=== PATIENT | female | born 1995 | race Caucasian/White ===

== ENCOUNTER → 2017-05-08 | Outpatient (CLI) | payer OTHER ==
[2017-05-08 14:21] LABS: HCT 36.9 % (34.0-46.0); HGB 12.2 gm/dL (11.4-16.0); MCH 28.4 pg (25.0-35.0); MCHC 33.1 g/dL (31.0-37.0); MCV 85.7 fL (80.0-100.0); Mean Platelet Volume 7.1; Platelet Count 220 k/uL (150-450); RDW 14.5 % (11.5-15.5); WBC 6.6 k/uL (3.8-10.6)
--- NOTE | 2017-05-08 14:31 | US ---
EXAMINATION TYPE: US OB <= 14 wk fetus DATE OF EXAM: 05/08/2017 COMPARISON: NONE CLINICAL HISTORY: Z36 Confirm dates. EXAM PERFORMED: Transabdominal (TA) EXAM MEASUREMENTS: GESTATIONAL AGE / DATING Physician Established: not established Dates by LMP: (11 weeks/2 days) EDC: 11/25/2017 Dates by First Scan: this is first scan Dates by Current Scan for: (11 weeks/6 days) EDC: 11/21/2017 MATERNAL ANATOMY Uterus: 13.6 x 9.1 x 8.8 cm Right Ovary: 2.7 x 3.7 x 2.1 cm Left Ovary: 3.3 x 2.3 x 2.0 cm Post CDS / Adnexa: wnl Presence of free fluid: none GESTATION / SURVEY CRL: 5.0 cm (11 weeks/6 days) Yolk Sac (normal less than 6mm): 0.5 cm Heart Rate: 156 bpm Rhythm: Normal IUP: Viable IUP Date of LMP: 02/18/2017 viable IUP that correlates with LMP. IMPRESSION: Single viable intrauterine corresponding to ultrasound age 11 weeks 6 days with estimated d ate of delivery 11/21/2017 by today's exam.
[2017-05-08 14:47] LABS: Glucose 74 mg/dL (74-99)
== END | disposition home or self-care (01) ==
LOC: RADUSWWP 13:34
PROVIDERS: ATTEND Obstetrics & Gynecology
DX: Z36.9 Encounter for antenatal screening, unspecified (principal); Z34.81 Encounter for supervision of other normal pregnancy, first trimester; Z3A.11 11 weeks gestation of pregnancy
CPT/HCPCS: 36415; 76801; 82565; 82947; 85027; 86592; 86762; 86850; 86900; 86901; 87340

== ENCOUNTER → 2017-08-28 | Outpatient (CLI) | payer OTHER ==
[2017-08-28 12:50] LABS: HCT 34.2 % (34.0-46.0); HGB 11.6 gm/dL (11.4-16.0); MCH 28.6 pg (25.0-35.0); MCHC 33.9 g/dL (31.0-37.0); MCV 84.2 fL (80.0-100.0); Mean Platelet Volume 7.3; Platelet Count 209 k/uL (150-450); RBC 4.06 m/uL (3.80-5.40); RDW 12.4 % (11.5-15.5); WBC 6.3 k/uL (3.8-10.6)
== END | disposition home or self-care (01) ==
LOC: LABWHC1 11:36
PROVIDERS: ATTEND Obstetrics & Gynecology
DX: Z34.82 Encounter for supervision of other normal pregnancy, second trimester (principal); Z3A.00 Weeks of gestation of pregnancy not specified
CPT/HCPCS: 36415; 82950; 85027; 86850

== ENCOUNTER 2019-10-21 17:47 | Observation (INO) | payer OTHER ==
[2019-10-21 19:16] VITALS: RESP 16
[2019-10-21] MEDS: LACTATED RINGERS 1,000 ML IV SCH ×3 (20:27→22:19)
[2019-10-21 22:06] VITALS: BP 112/66; PULSE 65; TEMP 97.5
[2019-10-22] MEDS: LACTATED RINGERS 1,000 ML IV SCH (04:20)
--- NOTE | 2019-10-22 08:17 | P.HPOB ---
History of Present Illness H&P Date: 10/22/19 Chief Complaint: contractions 24-year-old presents at 37 weeks and 3 days complaining of contractions. Her contractions were every 2-5 minutes. heart tones 135 with moderate variability and reactive. Her cervix did change in triage from 1-1/2 cm dilated to 3 cm dilated but still 50% effaced and -3 station. Started IV fluids and admitted for observation. If The patient goes into active labor, then I will do a repeat section. Review of Systems All systems: negative Constitutional: Denies chills, Denies fever Eyes: denies blurred vision, denies pain Ears, nose, mouth and throat: Denies headache, Denies sore throat Cardiovascular: Denies chest pain, Denies shortness of breath Respiratory: Denies cough Gastrointestinal: Denies abdominal pain, Denies diarrhea, Denies nausea, Denies vomiting Genitourinary: Denies dysuria, Denies hematuria Musculoskeletal: Denies myalgias Integumentary: Denies pruritus, Denies rash Neurological: Denies numbness, Denies weakness Psychiatric: Denies anxiety, Denies depression Endocrine: Denies fatigue, Denies weight change Past Medical History Past Medical History: No Reported History History of Any Multi-Drug Resistant Organisms: None Reported Past Surgical History: Appendectomy, Section Past Anesthesia/Blood Transfusion Reactions: No Reported Reaction Past Psychological History: No Psychological Hx Reported Smoking Status: Never smoker Past Drug Use History: Marijuana Additional Drug Use History / Comment(s): states smoked 1 month ago - Past Family History Father Family Medical History: No Reported History Medications and Allergies Home Medications Medication Instructions Recorded Confirmed Type Jdq-Yimc-Cyiyx Acid 1 tab PO DAILY 10/30/13 10/21/19 History [-U Capsule (formulary)] Allergies Allergy/AdvReac Type Severity Reaction Status Date / Time latex AdvReac Rash/Hives Verified 10/21/19 18:02 Exam Osteopathic Statement: *. No significant issues noted on an osteopathic structural exam other than those noted in the History and Physical/Consult. Vital Signs Temp Pulse Resp BP Pulse Ox 10/21/19 21:55 97.5 F L 65 16 112/66 10/21/19 19:08 97.4 F L 90 16 126/73 99 10/21/19 19:03 97.5 F L 65 16 112/66 Intake and Output 10/21/19 10/22/19 10/22/19 22:59 06:59 14:59 Intake Total 1000 Balance 1000 Intake: IV 1000 Other: Weight 72.575 kg Heart: Regular rate and rhythm Lungs: Clear to auscultation bilaterally Abdomen: Soft, nontender Extremities: Negative Homans sign Assessment and Plan (1) Primary inadequate contractions Current Visit: Yes Status: Acute Code(s): O62.0 - PRIMARY INADEQUATE CONTRACTIONS SNOMED Code(s): 670343910 (2) Previous section Current Visit: Yes Status: Acute Code(s): Z98.891 - HISTORY OF UTERINE SCAR FROM PREVIOUS SURGERY SNOMED Code(s): 925405285 Plan: 1. The patient was kept overnight for observation due to the fact that she is choco and has had a previous section. 2. If patient went into labor I would do a section.
--- NOTE | 2019-10-22 08:19 | P.DS ---
Providers Date of admission: 10/21/19 21:49 Expected date of discharge: 10/22/19 Attending physician: Madonna Garcia Primary care physician: Stated None - Discharge Diagnosis(es) (1) Primary inadequate contractions Current Visit: Yes Status: Acute (2) Previous section Current Visit: Yes Status: Acute Hospital Course: Patient presented complaining of contractions. Her cervix did change from 1.5 cm to 3 cm with 70% effaced and -3 station. Her contractions resolved after IV fluids and rest. heart tones were category 1 all night. She'll be discharged home to follow-up with Dr. Tarango next week. Plan - Discharge Summary New Discharge Prescriptions: No Action Yfu-Vyea-Tncsx Acid [-U Capsule (formulary)] 1 tab PO DAILY Discharge Medication List Znl-Mifb-Vusat Acid [-U Capsule (formulary)] 1 tab PO DAILY 10/30/13 [History]
== END 2019-10-22 11:25 | disposition home or self-care (01) ==
LOC: FBPOP 17:47 → 4FBP 21:49
PROVIDERS: ADMIT Obstetrics & Gynecology; ATTEND Obstetrics & Gynecology
DX: O62.0 Primary inadequate contractions (principal); Z98.891 History of uterine scar from previous surgery; Z3A.37 37 weeks gestation of pregnancy; Z90.49 Acquired absence of other specified parts of digestive tract; Z91.040 Latex allergy status
CPT/HCPCS: 59025; 96360; 96361 ×2; G0463; G0378; 99214

== ENCOUNTER 2019-10-23 05:35 | Inpatient (IN) | payer OTHER ==
[2019-10-23] MEDS ORDERED: METHYLERGONOVINE 0.2 MG/ML 1 ML AMP IM PRN (05:45)
[2019-10-23] MEDS ORDERED: OXYTOCIN 10 UNIT/ML 1 ML VIAL IM PRN (05:45)
[2019-10-23] MEDS ORDERED: CARBOPROST TROMETHAMINE 250 MCG/ML 1 ML AMP IM PRN (05:45)
[2019-10-23] MEDS ORDERED: TERBUTALINE 1 MG/ML VIAL SQ PRN (05:45)
[2019-10-23] MEDS ORDERED: LIDOCAINE 0.5% (PF) 5 MG/ML (50 ML SDV) SQ PRN (05:45)
[2019-10-23] MEDS: LACTATED RINGERS 1,000 ML IV SCH ×3 (06:25→20:02)
[2019-10-23 06:26] LABS: Basophils % (A) 0 %; Eosinophils # (A) 0.2 k/uL (0-0.7); Eosinophils % (A) 4 %; HCT 35.7 % (34.0-46.0); HGB 12.2 gm/dL (11.4-16.0); Lymphocytes # (A) 1.8 k/uL (1.0-4.8); Lymphocytes % (A) 31 %; MCH 29.1 pg (25.0-35.0); MCHC 34.1 g/dL (31.0-37.0); MCV 85.2 fL (80.0-100.0); Mean Platelet Volume 7.6; Monocytes # (A) 0.3 k/uL (0-1.0); Monocytes % (A) 6 %; Neutrophils # (A) 3.4 k/uL (1.3-7.7); Neutrophils % (A) 58 %; Platelet Count 239 k/uL (150-450); RBC 4.19 m/uL (3.80-5.40); RDW 13.1 % (11.5-15.5); WBC 5.8 k/uL (3.8-10.6)
[2019-10-23] MEDS ORDERED: CITRIC ACID-SODIUM CITRATE 15 ML CUP PO ONE (06:26)
[2019-10-23] MEDS ORDERED: OXYTOCIN 10 UNIT/ML 1 ML VIAL ONE (06:46)
[2019-10-23] MEDS ORDERED: ONDANSETRON 4 MG/2 ML VIAL ONE (06:46)
[2019-10-23] MEDS ORDERED: fentaNYL (PF) 50 MCG/ML 2 ML AMP ONE (06:46)
[2019-10-23] MEDS ORDERED: MORPHINE SULFATE (PF) 0.3 MG/0.3 ML SYR ONE (06:46)
[2019-10-23] MEDS ORDERED: KETOROLAC 30 MG/ML 1 ML VIAL ONE (06:46)
[2019-10-23] MEDS ORDERED: ONDANSETRON 4 MG/2 ML VIAL IVP PRN (07:19)
[2019-10-23] MEDS ORDERED: NALOXONE 0.4 MG/ML 1 ML VIAL IV PRN ×2 (07:19→08:16)
[2019-10-23] MEDS ORDERED: MORPHINE SULFATE 2 MG/ML SYRINGE IVP PRN (07:19)
[2019-10-23] MEDS ORDERED: diphenhydrAMINE 50 MG/ML 1 ML VIAL IVP PRN ×3 (07:19→08:16)
--- NOTE | 2019-10-23 08:01 | P.HPOB ---
History of Present Illness H&P Date: 10/23/19 Chief Complaint: Labor, SROM, previous 24-year-old presents at 37 weeks and 5 days complaining of spotting is rupture membranes at 4 AM and contractions. Her cervix is 5-6 cm dilated, 80% effaced, and -2 station. She is choco every 3-5 minutes. heart tones 135 with moderate variability and reactive. Review of Systems All systems: negative Constitutional: Denies chills, Denies fever Eyes: denies blurred vision, denies pain Ears, nose, mouth and throat: Denies headache, Denies sore throat Cardiovascular: Denies chest pain, Denies shortness of breath Respiratory: Denies cough Gastrointestinal: Denies abdominal pain, Denies diarrhea, Denies nausea, Denies vomiting Genitourinary: Denies dysuria, Denies hematuria Musculoskeletal: Denies myalgias Integumentary: Denies pruritus, Denies rash Neurological: Denies numbness, Denies weakness Psychiatric: Denies anxiety, Denies depression Endocrine: Denies fatigue, Denies weight change Past Medical History Past Medical History: No Reported History Additional Past Medical History / Comment(s): Obstetric history: She's had 3 previous deliveries. This is her fourth and she's had care with Dr. Dowling. Blood type is A-, amylase negative, rubella immune, hepatitis B negative, GBS negative, HIV negative, RPR nonreactive. History of Any Multi-Drug Resistant Organisms: None Reported Past Surgical History: Appendectomy, Section Past Anesthesia/Blood Transfusion Reactions: No Reported Reaction Past Psychological History: No Psychological Hx Reported Smoking Status: Never smoker Past Drug Use History: Marijuana Additional Drug Use History / Comment(s): about once a week - Past Family History Father Family Medical History: No Reported History Mother Family Medical History: No Reported History Medications and Allergies Home Medications Medication Instructions Recorded Confirmed Type RX: Ezx-Pqzl-Cvsse Acid 1 tab PO DAILY 10/30/13 10/23/19 History [-U Capsule (formulary)] Allergies Allergy/AdvReac Type Severity Reaction Status Date / Time latex AdvReac Rash/Hives Verified 10/23/19 05:36 Exam Osteopathic Statement: *. No significant issues noted on an osteopathic structural exam other than those noted in the History and Physical/Consult. Vital Signs Temp Pulse Resp BP Pulse Ox 10/23/19 06:33 97.0 F L 62 16 120/74 100 10/23/19 06:18 97.0 F L 62 16 120/74 100 Intake and Output 10/22/19 10/23/19 10/23/19 22:59 06:59 14:59 Other: Voiding Method Indwelling Catheter # Voids 1 Weight 70.76 kg Heart: Regular rate and rhythm Lungs: Clear to auscultation bilaterally Abdomen: Soft, nontender Extremities: Negative Homans sign Results Result Diagrams: 10/23/19 06:18 Assessment and Plan (1) Normal labor Current Visit: Yes Status: Acute Code(s): O80 - ENCOUNTER FOR FULL-TERM UNCOMPLICATED DELIVERY; Z37.9 - OUTCOME OF DELIVERY, UNSPECIFIED SNOMED Code(s): 45856124 (2) Previous section Current Visit: No Status: Acute Code(s): Z98.891 - HISTORY OF UTERINE SCAR FROM PREVIOUS SURGERY SNOMED Code(s): 144145713 (3) Family planning Current Visit: Yes Status: Acute Code(s): Z30.09 - ENCOUNTER FOR OTH GENERAL CNSL AND ADVICE ON CONTRACEPTION SNOMED Code(s): 265784635 Plan: 1. Repeat low transverse with tubal ligation
--- NOTE | 2019-10-23 08:04 | P.OP ---
Date of Procedure: 10/23/19 Preoperative Diagnosis: 1. at 37 weeks and 5 days 2. Previous section 3. Spontaneous rupture membranes 4. Labor 5. Family planning Postoperative Diagnosis: 1. at 37 weeks and 5 days 2. Previous section 3. Spontaneous rupture membranes 4. Labor 5. Family planning Procedure(s) Performed: Repeat low transverse with tubal ligation Anesthesia: MARLEE Surgeon: Madonna Garcia Maintenance Supervisor Electrical #1: Katt Francois Estimated Blood Loss (ml): 500 IV fluids (ml): 1,200 Urine output (ml): 100 Pathology: other (Segments of bilateral fallopian tubes) Condition: stable Disposition: floor Operative Findings: Normal uterus, tubes, ovaries. Viable male, Apgars 9, 9, weight 6 lbs. 9 oz. Description of Procedure: Patient was taken to the operating room where spinal anesthesia was found be adequate. She was prepped and draped in normal sterile fashion in dorsal supine position with a leftward tilt. Pfannenstiel skin incision was made the scalpel and carried through to the underlying layer of fascia with the scalpel. Fascia was incised in midline and carried bilaterally with the De La Rosa scissors. The superior aspect of the fascial incision was grasped with Tatum clamps elevated and the underlying rectus muscles dissected off with the De La Rosa's. Attention was then turned to inferior aspect of same incision which in a similar fashion was grasped tented up and the underlying rectus muscles dissected off with the De La Rosa's. The rectus muscles were the midline and the peritoneum was identified tented up and entered sharply with the scalpel. The incision was extended superiorly and inferiorly with good visualization of the bladder. The bladder blade was inserted and the vesicouterine peritoneum was incised the Metzenbaums then carried bilaterally and bladder flap created digitally. A low transverse incision was then made on the uterus with the scalpel. This was carried bilaterally and digital manner. Infant's head delivered atraumatically, nose and mouth bulb suctioned, cord clamped and cut, handed off to waiting nurses. Apgars 9,9, weight 6 lbs. 9 oz. Placenta delivered manually, intact with three-vessel cord. The uterus is exteriorized and cleared of all clots and debris. The uterine incision was closed with 0 Vicryl in a running locked fashion. Second layer of the same sutures used in imbricating fashion to obtain excellent hemostasis. Bladder flap was then reapproximated using 2-0 Vicryl in a running fashion. There was still a little oozing from the right corner of the incision on the uterus. I used FloSeal to obtain excellent hemostasis. Both ovaries and tubes appeared normal. The right fallopian tube was grasped with hemostat and a window was made in the mesosalpinx with the Bovie. This fallopian tube was doubly ligated and a segment was removed, pedicles cauterized with the Bovie. The left fallopian tube was then grasped with hemostat and a window was made in the mesosalpinx with the Bovie. The left fallopian tube was doubly ligated and a segment was removed, pedicles cauterized with the Bovie. The uterus was placed back into the abdomen. The peritoneum was reapproximated using 2-0 Vicryl in a running fashion. The muscles were reapproximated using 2-0 Vicryl in interrupted fashion. The fascia was reapproximated using 0 Vicryl in a running fashion. The subcutaneous tissues closed with 3-0 Vicryl running fashion. The skin was closed augusta. Patient tolerated the procedure well, sponge and instrument counts were correct times 2 and she was taken to the recovery room in stable condition.
[2019-10-23] MEDS ORDERED: ZOLPIDEM 5 MG TAB PO PRN (08:16)
[2019-10-23] MEDS ORDERED: diphenhydrAMINE 25 MG CAP PO PRN (08:16)
[2019-10-23] MEDS ORDERED: LANOLIN CREAM 5 GM TUBE TOPICAL PRN (08:16)
[2019-10-23] MEDS ORDERED: SIMETHICONE 80 MG CHEWABLE PO PRN (08:16)
[2019-10-23] MEDS ORDERED: ACETAMINOPHEN TAB 325 MG TAB PO PRN (08:16)
[2019-10-23] MEDS ORDERED: METOCLOPRAMIDE 5 MG/ML 2 ML VIAL IVP PRN (08:16)
[2019-10-23] MEDS ORDERED: KETOROLAC 30 MG/ML 1 ML VIAL IVP PRN (08:16)
[2019-10-23] MEDS ORDERED: diphenhydrAMINE 50 MG CAP PO PRN (08:16)
[2019-10-23] MEDS ORDERED: IBUPROFEN 600 MG TAB PO PRN (08:16)
[2019-10-23] MEDS ORDERED: OXYTOCIN 20 UNITS/1000 ML NS 1,000 ML IV SCH (08:30)
[2019-10-23 10:05] LABS: Basophils % (A) 0 %; Eosinophils # (A) 0.1 k/uL (0-0.7); Eosinophils % (A) 1 %; HCT 30.2 % (34.0-46.0); Lymphocytes # (A) 1.7 k/uL (1.0-4.8); Lymphocytes % (A) 10 %; MCH 28.2 pg (25.0-35.0); MCV 85.4 fL (80.0-100.0); Mean Platelet Volume 8.1; Monocytes # (A) 0.6 k/uL (0-1.0); Monocytes % (A) 3 %; Neutrophils # (A) 14.2 k/uL (1.3-7.7); Neutrophils % (A) 85 %; Platelet Count 259 k/uL (150-450); RBC 3.54 m/uL (3.80-5.40); RDW 13.3 % (11.5-15.5); WBC 16.7 k/uL (3.8-10.6)
--- NOTE | 2019-10-23 11:15 | P.PN ---
Progress Note - Text Progress Note Date: 10/23/19 Soon after the delivery was called to the patient reported increased vaginal bleeding. After examination it was found that her uterus was soft with a mutually that the bleeding is from atony. I massaged the fundus of the uterus and passed several more clots out. We then gave Methergine 0.2 mg IM 1. The uterus did start to firm up and Pitocin was still in the IV bag. After a several more minutes the uterus was atonic again. Massaged the fundus of the uterus for a full 10 minutes and 8 gave Hemabate 250 g IM 1. After 10 minutes of uterine massage the uterus stayed firm. CBC was drawn. Hemoglobin went from 12.2-10 right now. I will order another CBC in 4 hours. During the episode the blood pressure did go down to 60s over 30s though she was never tachycardic. She did look very pale and was dizzy and nauseous. These symptoms resolved after the uterine massage and Hemabate.
[2019-10-23] MEDS ORDERED: Rhogam IMMUNE GLOBULIN 1,500 UNIT/1 ML IM ONE (12:06)
[2019-10-23 14:33] LABS: HCT 24.8 % (34.0-46.0); MCH 27.3 pg (25.0-35.0); MCHC 32.5 g/dL (31.0-37.0); MCV 84.2 fL (80.0-100.0); Mean Platelet Volume 7.7; Platelet Count 212 k/uL (150-450); RBC 2.95 m/uL (3.80-5.40); RDW 13.4 % (11.5-15.5); WBC 16.5 k/uL (3.8-10.6)
[2019-10-23 14:38] LABS: HGB 8.1 gm/dL (11.4-16.0)
[2019-10-24] MEDS: SENNOSIDES-DOCUSATE SODIUM 1 EACH TAB PO SCH ×3 (00:02→20:33)
[2019-10-24 06:03] LABS: Basophils % (A) 0 %; Eosinophils # (A) 0.1 k/uL (0-0.7); Eosinophils % (A) 1 %; Lymphocytes # (A) 1.1 k/uL (1.0-4.8); Lymphocytes % (A) 10 %; MCHC 33.6 g/dL (31.0-37.0); MCV 86.3 fL (80.0-100.0); Mean Platelet Volume 8.5; Monocytes # (A) 0.5 k/uL (0-1.0); Monocytes % (A) 4 %; Neutrophils # (A) 9.3 k/uL (1.3-7.7); Neutrophils % (A) 84 %; Platelet Count 180 k/uL (150-450); RBC 2.26 m/uL (3.80-5.40); RDW 13.8 % (11.5-15.5)
[2019-10-24 06:17] LABS: HGB 6.5 gm/dL (11.4-16.0)
[2019-10-24 06:18] LABS: HCT 19.5 % (34.0-46.0)
--- NOTE | 2019-10-24 08:20 | P.PN ---
Progress Note - Text Progress Note Date: 10/24/19 Patient seen and examined today at bedside at 6:45 AM. She is postop day 1 from with spinal Duramorph. Pain score is reported as 2/10 today. Patient has ambulated and has urinated. She denies headache, nausea, vomiting, weakness, numbness. She endorsed itching yesterday, this is resolved today.
--- NOTE | 2019-10-24 09:13 | P.PNOBGPC ---
Subjective - Subjective Principal diagnosis: Post op day 1: Blood loss anemia/ hemorrhage Interval history: Overall patient looks stable. She is alert and oriented 3 weeks sitting up in a chair eating breakfast. She relates that she is very tired and feels exhausted. As such, with her hemoglobin is 6. 5. plan to transfuse 2 units packed red blood cells and see if we can get her feeling improved. Risks transfusion reviewed and she is had transfusion with her prior where she received 4 units of this is not necessarily completely surprising. Otherwise she is feeling well. We'll plan to continue care otherwise for now. Advanced diet. Ambler: doing well Objective - Vital Signs Latest vital signs: Vital Signs Temp Pulse Resp BP Pulse Ox 10/24/19 08:00 99.1 F 73 16 107/66 98 10/24/19 05:53 16 10/24/19 03:50 98.2 F 71 16 106/62 98 10/24/19 03:49 16 10/24/19 02:00 16 10/23/19 23:51 73 16 10/23/19 23:50 98.2 F 73 16 102/63 98 10/23/19 22:00 16 10/23/19 19:46 16 10/23/19 19:45 98 10/23/19 19:44 98.9 F 73 16 96/57 98 10/23/19 18:00 16 10/23/19 16:00 97.9 F 82 16 107/56 100 10/23/19 14:00 16 100 10/23/19 12:19 100 10/23/19 12:00 61 16 102/56 100 10/23/19 11:30 64 16 98/50 100 10/23/19 11:00 61 16 94/46 100 10/23/19 10:45 58 L 16 93/55 100 10/23/19 10:30 58 L 16 91/50 100 10/23/19 10:19 16 10/23/19 10:15 68 16 97/56 100 10/23/19 09:56 59 L 16 93/59 100 10/23/19 09:45 62 16 97/53 100 10/23/19 09:26 56 L 16 95/55 100 10/23/19 09:17 65 16 106/49 100 Intake and Output 10/23/19 10/24/19 10/24/19 22:59 06:59 14:59 Intake Total 120 600 Output Total 600 2300 Balance -600 -2180 600 Intake: Oral 120 600 Output: Urine 600 2300 Other: Voiding Method Indwelling Catheter # Voids 1 - Exam Lungs: bilateral: normal Chest: Normal S1, Normal S2 Extremities: Present: normal Abdomen: Present: normal appearance, soft. Absent: distention, tenderness Incision: Present: normal, dry, intact Uterus: Present: normal, firm - Labs Labs: Abnormal Lab Results - Last 24 Hours (Table) 10/23/19 10/23/19 10/23/19 Range/Units 06:18 08:51 14:06 WBC 16.7 H 16.5 H (3.8-10.6) k/uL RBC 3.54 L 2.95 L (3.80-5.40) m/uL Hgb 10.0 L D 8.1 L D (11.4-16.0) gm/dL Hct 30.2 L 24.8 L (34.0-46.0) % Neutrophils # 14.2 H (1.3-7.7) k/uL Crossmatch See Detail 10/24/19 Range/Units 05:43 WBC 11.0 H (3.8-10.6) k/uL RBC 2.26 L (3.80-5.40) m/uL Hgb 6.5 L* D (11.4-16.0) gm/dL Hct 19.5 L* (34.0-46.0) % Neutrophils # 9.3 H (1.3-7.7) k/uL Crossmatch
[2019-10-24] MEDS: PRENATAL VIT-IRON-FOLIC ACID 1 EACH CAP PO SCH ×2 (09:21→09:22)
[2019-10-24] MEDS: HYDROcodone/APAP 7.5-325MG 1 EACH TAB PO PRN (09:21)
[2019-10-25 05:40] LABS: Basophils % (A) 0 %; Eosinophils # (A) 0.2 k/uL (0-0.7); Eosinophils % (A) 2 %; HCT 24.1 % (34.0-46.0); HGB 7.8 gm/dL (11.4-16.0); Lymphocytes # (A) 1.4 k/uL (1.0-4.8); Lymphocytes % (A) 15 %; MCHC 32.5 g/dL (31.0-37.0); MCV 86.1 fL (80.0-100.0); Mean Platelet Volume 8.7; Monocytes # (A) 0.5 k/uL (0-1.0); Monocytes % (A) 5 %; Neutrophils # (A) 7.6 k/uL (1.3-7.7); Neutrophils % (A) 77 %; Platelet Count 165 k/uL (150-450); RDW 14.6 % (11.5-15.5); WBC 9.8 k/uL (3.8-10.6)
[2019-10-25] MEDS: SENNOSIDES-DOCUSATE SODIUM 1 EACH TAB PO SCH (08:22)
--- NOTE | 2019-10-25 08:23 | P.DS ---
Providers Date of admission: 10/23/19 05:47 Expected date of discharge: 10/25/19 Attending physician: Madonna Garcia Primary care physician: Stated None Hospital Course: Patient is doing very well post op day 2. She is involuting, voiding and she is tolerating her diet and has had a bowel movement. She is requesting discharge home today. Her hemoglobin this morning is 7.8 following 2 units of packed red blood cells yesterday. She will take iron tablets at home and be reevaluated in 1 week. Prescription for Motrin and Offerle has also been provided. She is aware to have no heavy lifting, surgeon driving, and pelvic rest. Should she have any lightheadedness dizziness or other signs or symptoms of hypovolemia she'll notify our office immediately or [facility] emergency room. Typically we would not want to do so discharge summary without lower hemoglobin post op day 2, but she is doing outstanding and I believe to very well at home since this is actually less blood loss than what she had last time. We'll also plan to remove augusta apply Steri-Strips prior to discharge. Heart regular, lungs clear, extremities without pain. Abdomen is soft her incision is clean dry and intact. Extremities without pain. Her vital signs are stable and she is afebrile. Assessment post op day 2. Plan discharged home follow up with me in 1 week. Patient Condition at Discharge: Good Plan - Discharge Summary New Discharge Prescriptions: New Ibuprofen [Motrin] 600 mg PO Q6HR PRN #30 tab PRN Reason: Pain HYDROcodone/APAP 5-325MG [Offerle 5-325] 1 tab PO Q4HR PRN #30 tab PRN Reason: Pain No Action Lgz-Jche-Ezxym Acid [-U Capsule (formulary)] 1 tab PO DAILY Discharge Medication List Yrk-Tijc-Zorwc Acid [-U Capsule (formulary)] 1 tab PO DAILY 10/30/13 [History] HYDROcodone/APAP 5-325MG [Offerle 5-325] 1 tab PO Q4HR PRN #30 tab 10/25/19 [Rx] Ibuprofen [Motrin] 600 mg PO Q6HR PRN #30 tab 10/25/19 [Rx] Follow up Appointment(s)/Referral(s): Marquis Tarango DO [Doctor of Osteopathic Medicine] - 1 Week Activity/Diet/Wound Care/Special Instructions: No heavy lifting, limit stairs and driving, and pelvic rest. If any high temperatures, heavy bleeding, or severe pain call my office Discharge Disposition: HOME SELF-CARE
[2019-10-25 08:27] VITALS: BP 112/67; PULSE 90; RESP 16; TEMP 98.4
[2019-10-25] MEDS: PRENATAL VIT-IRON-FOLIC ACID 1 EACH CAP PO SCH (08:34)
[2019-10-25] MEDS: HYDROcodone/APAP 7.5-325MG 1 EACH TAB PO PRN (10:51)
== END 2019-10-25 14:05 | disposition home or self-care (01) | DRG 784 ==
LOC: FBPOP 05:35 → 4FBP 05:47
PROVIDERS: ADMIT Obstetrics & Gynecology; ATTEND Obstetrics & Gynecology
PROC: 0UB70ZZ Excision of Bilateral Fallopian Tubes, Open Approach (ICD-10-PCS; principal; 2019-10-23 07:00)
PROC: 10D00Z1 Extraction of Products of Conception, Low, Open Approach (ICD-10-PCS; principal; 2019-10-23 07:00)
PROC: 30230N1 Transfusion of Nonautologous Red Blood Cells into Peripheral Vein, Open Approach (ICD-10-PCS; 2019-10-24)
DX: O34.211 Maternal care for low transverse scar from previous cesarean delivery (principal); O72.1 Other immediate postpartum hemorrhage; O99.02 Anemia complicating childbirth; D50.0 Iron deficiency anemia secondary to blood loss (chronic); Z37.0 Single live birth; Z3A.37 37 weeks gestation of pregnancy; Z30.2 Encounter for sterilization; Z91.040 Latex allergy status
CPT/HCPCS: 59025; 85025; 85027; 85461; 86850; 86870; 86880; 86900; 86901; 86920; 88302; 99213